=== PATIENT | female | born 1960 | race Caucasian/White ===

== ENCOUNTER 2017-03-09 03:17 | Emergency (ER) | payer SELFPAY ==
[~2017-03-09] VITALS: Ht 160 cm; Wt 61.4 kg
[~2017-03-09 03:17] MED LIST: AMOX500T PO; AMOX875 PO; BUPR-175 PO; BUPR150XL PO; FLON0.053; HYDR50TA5 PO; PROP10TA6 PO; VENTAER INH
[2017-03-09 03:24] VITALS: BP 143/75; PULSE 90; RESP 18; TEMP 97.9; O2SAT 99
[2017-03-09] MEDS ORDERED: HYDR50TA3 PO (03:32)
[2017-03-09] MEDS ORDERED: LISI10TA3 PO (03:32)
[2017-03-09] MEDS ORDERED: LORazepam 2 MG TAB PO ONE (04:00)
[2017-03-09 04:05] LABS: BASOPHIL % 0.7 % (0.0-2.0); EOSINOPHIL % 0.4 % (0.0-4.0); HEMATOCRIT 40.3 % (35.0-46.0); HEMO FLAGS DIFF FINAL; LYMPH % 32.3 % (9.0-44.0); LYMPHOCYTE # 2.1 TH/MM3 (1.0-4.8); MEAN CELL VOLUME 93.5 FL (80.0-100.0); MEAN CORPUSCULAR HEMOGLOBIN 32.5 PG (27.0-34.0); MEAN CORPUSCULAR HGB CONC 34.8 % (32.0-36.0); MONO % 4.8 % (0.0-8.0); NEUT % 61.8 % (16.0-70.0); PLATELET COUNT 320 TH/MM3 (150-450); RED BLOOD COUNT 4.31 MIL/MM3 (4.00-5.30); RED CELL DISTRIBUTION WIDTH 13.4 % (11.6-17.2); WHITE BLOOD COUNT 6.5 TH/MM3 (4.0-11.0)
--- NOTE | 2017-03-09 04:32 | PD ---
HPI Chief Complaint: Depression Time Seen by Provider: 04:27 Travel History International Travel<30 days: No Contact w/Intl Traveler<30days: No Traveled to known affect area: No History of Present Illness HPI 56-year-old white female presents emergency department on a voluntary basis for psychological evaluation. Patient states that she is feeling increasingly depressed. She states that her nearly one year ago now. She feels overwhelmed at home. The patient is concerned that she may also have alcohol issues. She drinks on a daily basis. The patient states that she no longer wants to live but she does not feel suicidal. She has no plan on self- harm. She denies any homicidal ideation. She denies any toxic ingestions. She admits to alcohol this evening. She denies any drugs. The patient wants to talk to someone. She states that she has a lot of friends with a are not very good listeners. The patient states that she has a history of hypertension depression of the past but she is not on any medications. She is having problems with insurance coverage. PFSH Past Medical History Narrative Medical Hypertension, depression Hx Anticoagulant Therapy: Yes (asa) Depression: Yes Hypertension: Yes Tetanus Vaccination: Unknown Menopausal: Yes Past Surgical History Narrative Surgical Laparoscopy for ovarian cyst Gynecologic Surgery: Yes (R OVARY REMOVED) Social History Alcohol Use: Yes (daily 6-8 shots of liquor) Tobacco Use: No Substance Use: Yes (marijuana) Allergies-Medications (Allergen,Severity, Reaction): Coded Allergies: No Known Allergies (Verified , 09/04/15) Reported Meds & Prescriptions Reported Meds & Active Scripts Active Reported Lisinopril 10 Mg Tab 10 Mg PO DAILY Hydrochlorothiazide 50 Mg Tab 50 Mg PO DAILY Review of Systems Except as stated in HPI: all other systems reviewed are Neg Psychiatric: Positive: Depression, Mood Disorder, Substance Abuse, No: Anxiety , Suicidal Ideations, Disorder of Thought, Homicidal Ideation Physical Exam Narrative GENERAL: Well-nourished, well-developed patient. Smells of EtOH and appears intoxicated. SKIN: Warm and dry. HEAD: Normocephalic and atraumatic. EYES: No scleral icterus. No injection or drainage. ENT: No nasal drainage noted. Mucous membranes pink. Airway patent. NECK: Supple, trachea midline. Moves head freely without obvious discomfort. CARDIOVASCULAR: Regular rate and rhythm without murmurs, gallops, or rubs. RESPIRATORY: Breath sounds equal bilaterally. No accessory muscle use. GASTROINTESTINAL: Abdomen soft, non-tender, nondistended. EXTREMITIES: No cyanosis or edema. BACK: Nontender without obvious deformity. No CVA tenderness. NEURO: Patient is alert and oriented. no sensorimotor deficits. Nonfocal. Normal speech. PSYCH: No delusions. No auditory or visual hallucinations. Data Data Last Documented VS Vital Signs Date Time Temp Pulse Resp B/P Pulse Ox O2 Delivery O2 Flow Rate FiO2 03/09/17 03:24 97.9 90 18 143/75 99 Orders Complete Blood Count With Diff (03/09/17 03:37) Comprehensive Metabolic Panel (03/09/17 03:37) Psych Screen (03/09/17 03:37) Drug Screen, Random Urine (03/09/17 03:37) Alcohol (Ethanol) (03/09/17 03:37) Salicylates (Aspirin) (03/09/17 03:37) Tylenol (Acetaminophen) (03/09/17 03:37) Lorazepam (Ativan) (03/09/17 04:00) Labs Laboratory Tests Test 03/09/17 03/09/17 03:40 04:22 White Blood Count 6.5 TH/MM3 Red Blood Count 4.31 MIL/MM3 Hemoglobin 14.0 GM/DL Hematocrit 40.3 % Mean Corpuscular Volume 93.5 FL Mean Corpuscular Hemoglobin 32.5 PG Mean Corpuscular Hemoglobin 34.8 % Concent Red Cell Distribution Width 13.4 % Platelet Count 320 TH/MM3 Mean Platelet Volume 7.1 FL Neutrophils (%) (Auto) 61.8 % Lymphocytes (%) (Auto) 32.3 % Monocytes (%) (Auto) 4.8 % Eosinophils (%) (Auto) 0.4 % Basophils (%) (Auto) 0.7 % Neutrophils # (Auto) 4.0 TH/MM3 Lymphocytes # (Auto) 2.1 TH/MM3 Monocytes # (Auto) 0.3 TH/MM3 Eosinophils # (Auto) 0.0 TH/MM3 Basophils # (Auto) 0.0 TH/MM3 CBC Comment DIFF FINAL Differential Comment Sodium Level 143 MEQ/L Potassium Level 3.3 MEQ/L Chloride Level 104 MEQ/L Carbon Dioxide Level 25.2 MEQ/L Anion Gap 14 MEQ/L Blood Urea Nitrogen 8 MG/DL Creatinine 0.54 MG/DL Estimat Glomerular Filtration 116 ML/MIN Rate Random Glucose 74 MG/DL Calcium Level 9.1 MG/DL Total Bilirubin 0.4 MG/DL Aspartate Amino Transf 106 U/L (AST/SGOT) Alanine Aminotransferase 94 U/L (ALT/SGPT) Alkaline Phosphatase 86 U/L Total Protein 7.5 GM/DL Albumin 3.7 GM/DL Salicylates Level LESS THAN 1.7 MG/DL Acetaminophen Level LESS THAN 2.0 MCG/ML Ethyl Alcohol Level 353 MG/DL Urine Opiates Screen NEG Urine Barbiturates Screen NEG Urine Amphetamines Screen NEG Urine Benzodiazepines Screen NEG Urine Cocaine Screen NEG Urine Cannabinoids Screen NEG MDM Medical Decision Making Medical Screen Exam Complete: Yes Emergency Medical Condition: Yes Medical Record Reviewed: Yes Interpretation(s) Laboratory Tests Test 03/09/17 03/09/17 03:40 04:22 White Blood Count 6.5 TH/MM3 Red Blood Count 4.31 MIL/MM3 Hemoglobin 14.0 GM/DL Hematocrit 40.3 % Mean Corpuscular Volume 93.5 FL Mean Corpuscular Hemoglobin 32.5 PG Mean Corpuscular Hemoglobin 34.8 % Concent Red Cell Distribution Width 13.4 % Platelet Count 320 TH/MM3 Mean Platelet Volume 7.1 FL Neutrophils (%) (Auto) 61.8 % Lymphocytes (%) (Auto) 32.3 % Monocytes (%) (Auto) 4.8 % Eosinophils (%) (Auto) 0.4 % Basophils (%) (Auto) 0.7 % Neutrophils # (Auto) 4.0 TH/MM3 Lymphocytes # (Auto) 2.1 TH/MM3 Monocytes # (Auto) 0.3 TH/MM3 Eosinophils # (Auto) 0.0 TH/MM3 Basophils # (Auto) 0.0 TH/MM3 CBC Comment DIFF FINAL Differential Comment Sodium Level 143 MEQ/L Potassium Level 3.3 MEQ/L Chloride Level 104 MEQ/L Carbon Dioxide Level 25.2 MEQ/L Anion Gap 14 MEQ/L Blood Urea Nitrogen 8 MG/DL Creatinine 0.54 MG/DL Estimat Glomerular Filtration 116 ML/MIN Rate Random Glucose 74 MG/DL Calcium Level 9.1 MG/DL Total Bilirubin 0.4 MG/DL Aspartate Amino Transf 106 U/L (AST/SGOT) Alanine Aminotransferase 94 U/L (ALT/SGPT) Alkaline Phosphatase 86 U/L Total Protein 7.5 GM/DL Albumin 3.7 GM/DL Salicylates Level LESS THAN 1.7 MG/DL Acetaminophen Level LESS THAN 2.0 MCG/ML Ethyl Alcohol Level 353 MG/DL Urine Opiates Screen NEG Urine Barbiturates Screen NEG Urine Amphetamines Screen NEG Urine Benzodiazepines Screen NEG Urine Cocaine Screen NEG Urine Cannabinoids Screen NEG Vital Signs Date Time Temp Pulse Resp B/P Pulse Ox O2 Delivery O2 Flow Rate FiO2 03/09/17 03:24 97.9 90 18 143/75 99 Differential Diagnosis MDM: High Differential diagnoses: Schizophrenia, schizoaffective disorder, bipolar, anxiety, depression, adjustment reaction, mood disorder NOS, ODD, depressive disorder NOS, dementia, dementia with agitation, psychosis NOS, substance induced mood disorder, intermittent explosive disorder, Asperger syndrome, infection,electrolyte abnormality, malingering. Narrative Course Mental health screening discussed with the patient. Psychiatric screen ordered. The patient is been medically cleared This is depression, alcohol intoxication, alcohol abuse, medical clearance for psychological admission Diagnosis Primary Impression: Acute depression Additional Impressions: Alcohol intoxication Qualified Code: F10.920 - Alcohol intoxication, uncomplicated Alcohol abuse Medical clearance for psychiatric admission Condition: Stable Ravi Ross Mar 09, 2017 04:32
[2017-03-09 04:39] LABS: AMPHETAMINE, URINE NEG (NEG); BARBITURATES, URINE NEG (NEG); COCAINE, URINE NEG (NEG)
[2017-03-09 04:45] LABS: ANION GAP 14 MEQ/L (5-15)
[2017-03-09 05:01] LABS: ACETAMINOPHEN LESS THAN 2.0 MCG/ML (10.0-30.0); ALKALINE PHOSPHATASE 86 U/L (45-117); ALT (GPT) 94 U/L (10-53); AST (GOT) 106 U/L (15-37); BICARBONATE 25.2 MEQ/L (21.0-32.0); BLOOD UREA NITROGEN 8 MG/DL (7-18); CHLORIDE 104 MEQ/L (98-107); GLOMERULAR FILTRATION RATE 116 ML/MIN (>89); POTASSIUM 3.3 MEQ/L (3.5-5.1); SODIUM (NA) 143 MEQ/L (136-145); TOTAL BILIRUBIN ADULT 0.4 MG/DL (0.2-1.0)
[2017-03-09 07:13] VITALS: BP 106/58; PULSE 92; RESP 17; O2SAT 98
[2017-03-09 11:12] VITALS: PULSE 88; RESP 18; O2SAT 98
--- NOTE | 2017-03-09 11:19 | PD ---
Physical Exam Narrative Patient was seen by psychiatric team this morning and cleared for to be discharged. Data Data Last Documented VS Vital Signs Date Time Temp Pulse Resp B/P Pulse Ox O2 Delivery O2 Flow Rate FiO2 03/09/17 11:12 88 18 98 Room Air 03/09/17 07:13 106/58 03/09/17 03:24 97.9 Orders Complete Blood Count With Diff (03/09/17 03:37) Comprehensive Metabolic Panel (03/09/17 03:37) Psych Screen (03/09/17 03:37) Drug Screen, Random Urine (03/09/17 03:37) Alcohol (Ethanol) (03/09/17 03:37) Salicylates (Aspirin) (03/09/17 03:37) Tylenol (Acetaminophen) (03/09/17 03:37) Lorazepam (Ativan) (03/09/17 04:00) Diet Regular Basic (03/09/17 Breakfast) Labs Laboratory Tests Test 03/09/17 03/09/17 03:40 04:22 White Blood Count 6.5 TH/MM3 Red Blood Count 4.31 MIL/MM3 Hemoglobin 14.0 GM/DL Hematocrit 40.3 % Mean Corpuscular Volume 93.5 FL Mean Corpuscular Hemoglobin 32.5 PG Mean Corpuscular Hemoglobin 34.8 % Concent Red Cell Distribution Width 13.4 % Platelet Count 320 TH/MM3 Mean Platelet Volume 7.1 FL Neutrophils (%) (Auto) 61.8 % Lymphocytes (%) (Auto) 32.3 % Monocytes (%) (Auto) 4.8 % Eosinophils (%) (Auto) 0.4 % Basophils (%) (Auto) 0.7 % Neutrophils # (Auto) 4.0 TH/MM3 Lymphocytes # (Auto) 2.1 TH/MM3 Monocytes # (Auto) 0.3 TH/MM3 Eosinophils # (Auto) 0.0 TH/MM3 Basophils # (Auto) 0.0 TH/MM3 CBC Comment DIFF FINAL Differential Comment Sodium Level 143 MEQ/L Potassium Level 3.3 MEQ/L Chloride Level 104 MEQ/L Carbon Dioxide Level 25.2 MEQ/L Anion Gap 14 MEQ/L Blood Urea Nitrogen 8 MG/DL Creatinine 0.54 MG/DL Estimat Glomerular Filtration 116 ML/MIN Rate Random Glucose 74 MG/DL Calcium Level 9.1 MG/DL Total Bilirubin 0.4 MG/DL Aspartate Amino Transf 106 U/L (AST/SGOT) Alanine Aminotransferase 94 U/L (ALT/SGPT) Alkaline Phosphatase 86 U/L Total Protein 7.5 GM/DL Albumin 3.7 GM/DL Salicylates Level LESS THAN 1.7 MG/DL Acetaminophen Level LESS THAN 2.0 MCG/ML Ethyl Alcohol Level 353 MG/DL Urine Opiates Screen NEG Urine Barbiturates Screen NEG Urine Amphetamines Screen NEG Urine Benzodiazepines Screen NEG Urine Cocaine Screen NEG Urine Cannabinoids Screen NEG MDM Supervised Visit with [facility]: No Narrative Course Patient was medically cleared last night. Patient was seen by psychiatric team this morning and cleared to be discharged. Diagnosis Primary Impression: Acute depression Additional Impressions: Alcohol intoxication Qualified Code: F10.920 - Alcohol intoxication, uncomplicated Alcohol abuse Medical clearance for psychiatric admission Patient Instructions: General Instructions Additional Instruction: Follow-up with local physician. Med/Other Pt SpecificInfo: No Change to Meds Disposition: 01 DISCHARGE HOME Condition: Stable Luis Alberto Aguirre MD Mar 09, 2017 11:19
== END 2017-03-09 12:30 | disposition home or self-care (01) ==
LOC: NEPD 03:17
DX: F33.9 Major depressive disorder, recurrent, unspecified (principal); F10.120 Alcohol abuse with intoxication, uncomplicated; Y90.8 Blood alcohol level of 240 mg/100 ml or more; I10 Essential (primary) hypertension
CPT/HCPCS: 80053; 80307; 85025; 99284